=== PATIENT | female | born 2000 | race Caucasian/White ===

== ENCOUNTER 2021-06-05 15:56 | Emergency (ER) | payer MEDICAID, OTHER ==
[~2021-06-05] VITALS: Ht 157.5 cm; Wt 55.5 kg
[2021-06-05 16:03] VITALS: BP 138/87
[2021-06-05] MEDS ORDERED: NEOSPORIN OINT. PKT 1 PACKET ONE (16:13)
--- NOTE | 2021-06-05 16:19 | NUR ---
pt refused temp. bites, does not cooperate. also lac L shoulder should have been sutured at [facility], wide, no bleeding, not dressed, plan wound care. as
== END 2021-06-05 17:38 ==
LOC: ED 16:30
DX: F19.139 Other psychoactive substance abuse with withdrawal, unspecified (principal); R00.2 Palpitations; R06.00 Dyspnea, unspecified; R94.31 Abnormal electrocardiogram [ECG] [EKG]
CPT/HCPCS: 82962; 93005; 99283